=== PATIENT | female | born 1970 | race Caucasian/White ===

== ENCOUNTER 2018-07-30 10:02 | Outpatient (CLI) | payer BC ==
[2018-07-30] VITALS (10 sets, daily range): BP systolic 95–119; BP diastolic 52–70
[~2018-07-30] VITALS: Ht 154.9 cm; Wt 80.3 kg
[2018-07-30] MEDS ORDERED: CYCL10TA2 PO (10:34)
[2018-07-30] MEDS ORDERED: TOPI25TA7 PO (10:34)
[2018-07-30] MEDS ORDERED: CLON1TAB PO (10:34)
[2018-07-30] MEDS ORDERED: SERT100T PO (10:34)
[2018-07-30] MEDS ORDERED: METH36TA PO (10:34)
[2018-07-30] MEDS ORDERED: BUPR150T8 PO (10:34)
[2018-07-30] MEDS ORDERED: LAMO100T5 PO (10:34)
[2018-07-30] MEDS ORDERED: SUMA50TA3 PO (10:34)
[2018-07-30] MEDS ORDERED: BUSP5TAB PO (10:34)
[2018-07-30 10:49] LABS: BASO % 0 % (0-3); EOS % 2 % (0-3); HEMATOCRIT 33.6 % (36.0-47.0); LYMPH % 46 % (24-48); MEAN CORPUSCULAR HEMOGLOBIN 38 pg (25-35); MEAN CORPUSCULAR HGB CONC 36 g/dL (31-37); MEAN CORPUSCULAR VOLUME 106 fL (79-100); MONO # 0.5 x10^3/uL (0.0-1.1); MONO % 26 % (0-9); NEUT # 0.6 x10^3uL (1.8-7.7); NEUT % 26 % (31-73); PLATELET COUNT 275 x10^3/uL (140-400); RED BLOOD COUNT 3.18 x10^6/uL (3.50-5.40); RED CELL DISTRIBUTION WIDTH 14.2 % (11.5-14.5); WHITE BLOOD COUNT 2.1 x10^3/uL (4.0-11.0)
[2018-07-30 10:58] LABS: PROTHROMBIN TIME PATIENT 12.7 SEC (11.7-14.0)
[2018-07-30 11:16] LABS: % BANDS 3 % (0-9); % BASOS 2 % (0-3); % EOS 1 % (0-5); % LYMPHS 48 % (24-48); % MONOS 19 % (0-10); % SEGS 27 % (35-66); PLT ESTIMATE ADEQUATE (ADEQUATE)
[2018-07-30 11:22] LABS: OVALOCYTES FEW
[2018-07-30] MEDS ORDERED: LIDOCAINE WITH 8.4% SOD BICARB 3 ML DISP.SYRIN. ONE (11:30)
[2018-07-30] MEDS ORDERED: MIDAZOLAM HCL/PF 2 MG/2 ML VIAL. ONE (11:37)
[2018-07-30] MEDS ORDERED: fentaNYL PF VIAL 100 MCG/2 ML VIAL ONE (11:38)
[2018-07-30] MEDS ORDERED: fentaNYL PF VIAL 100 MCG/2 ML VIAL IV ONE (12:00)
[2018-07-30] MEDS ORDERED: LIDOCAINE WITH 8.4% SOD BICARB 3 ML DISP.SYRIN. IJ ONE (12:00)
[2018-07-30] MEDS ORDERED: MIDAZOLAM HCL/PF 2 MG/2 ML VIAL. IV ONE (12:00)
--- NOTE | 2018-07-30 13:10 | RAD ---
CT-guided bone marrow biopsy. 07/30/2018 1:06 PM Indication: Evaluate for leukemia Discussion: The risks and benefits of the procedure, including but not limited to, bleeding and infection were discussed patient. Informed consent was obtained. The patient was brought to the CT scanner and placed in the prone position. A timeout procedure was performed. Track Watchman CT imaging of the pelvis demonstrated left ilium amenable to bone marrow biopsy. The overlying soft tissues were prepped and draped using maximum sterile barrier technique. 1% lidocaine without epinephrine was administered for local anesthesia. Under intermittent CT guidance, an OncControl needle was advanced into the bone marrow of the left iliac crest. 2 Aspirates and 1 core biopsy samples were obtained. Samples were delivered to pathology was present at the time of procedure. The needle was removed and manual pressure held to achieve hemostasis. No immediate complications were identified. The procedure was performed under conscious sedation including continuous cardiopulmonary monitoring via dedicated sedation nurse. Sedation time: 20 minutes Impression: Successful CT-guided bone marrow biopsy of the left iliac crest . PQRS Compliance Statement: One or more of the following individualized dose reduction techniques were utilized for this examination: 1. Automated exposure control 2. Adjustment of the mA and/or kV according to patient size 3. Use of iterative reconstruction technique
--- NOTE | 2018-07-30 13:44 | NUR ---
Patient and educated on moderate sedation, incision site care and bone biopsy; Both verbalized understanding. Vitals stable, patient discharged home with via wheelchair.
--- NOTE | 2018-08-06 16:07 | PATHOLOGY ---
[facility] Accession Number: [id number] . 01 Material submitted: . PART A: BONE MARROW BIOPSY PART B: BONE MARROW ASP CLOT PART C: BONE MARROW SMEAR PART D: PBS PART E: BONE MARROW FLOW . 01 Clinical history: . 47-year-old woman with leukopenia/neutropenia. . 02 Diagnosis: Bone marrow aspirate, biopsy, cell clot and peripheral blood: - Peripheral blood with leukopenia/neutropenia and relative mature monocytosis. - Hypocellular bone marrow with trilineage hematopoiesis and increased blasts. - Only trace stainable iron. - See comment. (CLW:marian/edward; 08/06/2018) QMS/08/06/2018 . 02 Comment: Overall, the bone marrow is hypocellular for the patient's age with trilineage hematopoiesis and increased blasts. There are 4.5% blasts by flow cytometry with potential abarrent expression and 11% blasts on a hemodilute aspirate smear within a 200 cell count differential. The clinical significance of this is unclear. It is concerning for a potential myeloid neoplasm and acute myeloid leukemia cannot be entirely excluded. Correlation with the clinical history, additional laboratory data and cytogenetics is required. The case is co-reviewed with Dr. Joaquin Muller. The case was discussed preliminary with Dr. Diego Paul on 07/30/2018 at approximately 3:00 p.m., and again on 08/02/2018 at 11:30 a.m. (CLW:marian/edward; 08/06/2018) . 02 Electronically signed: . Yajaira Shah MD, Pathologist NPI- [id number] . 01 Gross description: . A. Received in formalin labeled "Aleah Richards," and additionally labeled on the requisition as "BM BX," is a single needle core of bullard bone measuring 1.5 cm in length and 0.3 cm in diameter. The specimen is submitted entirely in cassette A1, following decalcification. . B. Received in formalin labeled "Aleah Richards, BM Asp clot," is an aggregate of dark bullard blood clot measuring 2.8 x 2.5 x 0.2 cm in aggregate dimensions. The specimen is filtered and entirely submitted in cassette B1. (TSD; 07/30/2018) TOB/TOB . 02 Microscopic: . CBC Data (07/30/2018): WBC 2,100 /uL, RBC 3.18, hemoglobin 12.0 g/dL, hematocrit 33.6%, MCV 106 fL, MCH 38 pg, MCHC 36 g/dL, RDW 14.2%, and platelet count 275,000 /uL. Automated white blood cell differential: segs 26%, lymphs 46%, monos 26%, and eos 2%. Manual white blood cell differential: segs 27%, bands 3%, lymphs 48%, monos 19%, eos 1%, and basos 2%. . Peripheral Blood Smear: Cytomorphological examination of the Doyle's stained peripheral blood smear confirms the provided data. Red blood cells are macrocytic and are without significant anisopoikilocytosis. White blood cells are decreased in number. They are predominantly granulocytes, lymphocytes, and monocytes. There is a neutropenia. Granulocytes are predominantly segmented neutrophils and are without dyspoiesis. Lymphocytes are predominantly small, round, and mature appearing with condensed chromatin and scant cytoplasm with admixed large granular lymphocytes and reactive appearing lymphocytes. There is an relative mature monocytosis. Platelets are adequate in number and mainly normal in morphology with rare larger platelets noted. . Aspirate Smears: Cytomorphological examination of the Doyle's stained aspirate smears shows no intact spicules present. It is predominantly blood and peripheral blood elements. Scattered hematopoietic progenitor cells are identified; therefore, this most likely represents a hemodilute sample. Myeloblasts without Elijah rods are identified on scanning. Myeloid and erythroid maturation are difficult to evaluate due to the hemodilute nature of the specimen. In a 200 cell differential, there are 11% blasts (no Elijah rods are seen), 28% more differentiated myeloids, 6% nucleated red blood cells, and 55% lymphocytes. No megakaryocytes are seen on scanning. No lymphoid aggregates or markedly atypical lymphoid cells are identified. Rare plasma cells are without atypia. Iron stain of a touch imprint shows 0/4+ iron positivity. Again, it is predominantly blood and peripheral blood elements. No ringed sideroblasts are identified. . Core Biopsy and Cell Clot: The decalcified bone marrow core biopsy is adequate. The bone marrow is hypocellular with an overall cellularity of approximately 30%. Normal trilineage hematopoiesis is decreased. There is an interstitial infiltrate of immature appearing cells admixed with aggregates of nucleated red blood cells. Scattered megakaryocytes are also noted. No lymphoid aggregates or markedly atypical lymphoid cells are seen. Bony trabeculae and blood vessels are unremarkable. The cell clot is predominantly blood and peripheral blood elements with no intact spicules present. . Properly controlled special stains are performed. . Iron (Block A1): Trace stainable iron Reticulin (Block A1): No significant reticulin fibrosis. Iron (Block B1): 0/4+ iron positivity (predominantly blood and peripheral blood elements). . A properly controlled immunohistochemical stain is performed. . CD34 (Block A1): Highlights mildly increased CD34 positive cells. . . Flow Cytometry: Flow cytometric immunophenotypic analysis was performed at [facility]. The diagnosis is "4.5% blasts detected." There are 43.5% lymphocytes. Of the lymphocytes, there are 71% T-cells with a CD4/CD8 ratio of 1.8 and no aberrant T-cell antigen expression and 8% polyclonal B-cells. There are 9.5% of cells within the dim CD45 gate which comprise 4.5% CD34 positive blasts. The blasts have the following phenotype: Questionable dim CD7, CD13, dim CD33, CD34, CD117, and HLA-DR expression. They are negative for CD10 and CD19. Please see separate flow cytometry report from [facility] ([id number]). . Cytogenetics Analysis: Cytogenetic chromosomal analysis was performed at [facility]. The karyotype is 46, XX(13). The interpretation is a female karyotype-see comment. Cytogenetic analysis shows a female karyotype in all cells analyzed. Due to a low mitotic index, only 13 metaphase cells are available for analysis. This is less than our standard of 20 cells and therefore represents an incomplete study and a disease-associated change cannot be ruled out. Please see separate cytogenics report from [facility] ([id number]). . (CLW:marian/edward; 08/06/2018) . 02 Pathologist provided ICD-10: D72.819, D72.821, D75.9 . 02 CPT . 605780, 883613, 764616, 827338, 351246, 972180, 613973, 114488, 175147, E58930 Specimen Comment: A courtesy copy of this report has been sent to Specimen Comment: [phone], , . Specimen Comment: Report sent to , and Performed at: 01 [facility] [address] [id number] MD Severino Viera MD Phone: [phone] Performed at: 02 [facility] [address] [id number] MD Jonathan Fisher MD Phone: [phone]
== END 2018-07-30 13:30 | disposition home or self-care (01) ==
LOC: INTRAD 10:02
PROVIDERS: ATTEND Internal Medicine Hematology & Oncology
DX: D70.4 Cyclic neutropenia (principal); Z79.899 Other long term (current) drug therapy; Z79.01 Long term (current) use of anticoagulants
CPT/HCPCS: 36415; 38222; 77012; 85025; 85610; 88184; 88185; 88237; 99152; J2250; J3010; 85007